=== PATIENT | male | born 1955 | race Caucasian/White ===

== ENCOUNTER 2017-11-04 06:00 | Day surgery (SDC) | payer BC ==
[2017-11-03 13:30] VITALS: BMI 25.9
[2017-11-04 06:42] LABS: #Basophils 0.1 thou/uL (0.0-0.2); #Eosinphils 0.7 thou/uL (0.0-0.7); #Lymphocytes 2.5 thou/uL (1.20-3.40); #Monocytes 0.6 thou/uL (0.11-0.59); #Neutrophils 3.2 thou/uL (1.40-6.50); %Basophils 0.8 % (0.0-1.0); %Eosinophils 9.5 % (0.0-10.0); %Lymphocytes 35.3 % (21.0-51.0); %Monocytes 9.2 % (0.0-10.0); %Neutrophils 45.2 % (42.0-75.0); Hemoglobin 14.3 g/dL (14.0-18.0); Mean Corpuscular HGB CONC 33.1 g/dL (32.0-36.0); Mean Corpuscular Hemoglobin 31.1 pg (27.0-31.0); Mean Corpuscular Volume 93.7 fl (80.0-94.0); Mean Platelet Volume 8.7 fL (7.4-10.4); Platelet Count 209 thou/uL (130-400); RBC Distribution Width 11.5 % (11.5-14.5); Red Blood Cell (RBC) Count 4.61 mill/uL (4.70-6.10)
[2017-11-04] MEDS ORDERED: Bupivacaine PF 0.5% 30 ML VIAL ONE ×2 (06:56→07:03)
[2017-11-04] MEDS ORDERED: Lidocaine 2% w/Epinephrine 1:200K 20 ML VIAL ONE (06:56)
[2017-11-04] MEDS ORDERED: Fentanyl 100 MCG/2 ML VIAL ONE (06:57)
[2017-11-04 07:06] LABS: Anion Gap 10 mmol/L (10-20); BUN (Urea Nitrogen) 13 mg/dL (8.4-25.7); Calc. Creatinine Clearance 130 mL/min (70-130); Calcium 9.7 mg/dL (7.8-10.44); Carbon Dioxide 26 mmol/L (22-29); Chloride 107 mmol/L (98-107); Estimated GFR-MDRD Greater than 90; Glucose 116 mg/dL (70-105); Potassium 4.2 mmol/L (3.5-5.1); Sodium 139 mmol/L (136-145)
[2017-11-04] MEDS ORDERED: Levofloxacin 500 mg/D5W 100 ml Premix Bag ONE (07:11)
[2017-11-04] MEDS ORDERED: Lidocaine 1% PF 5 ML VIAL ONE (14:14)
[2017-11-04] MEDS ORDERED: Ketorolac Tromethamine 30 MG/ML VIAL ONE (14:14)
[2017-11-04] MEDS ORDERED: Ondansetron HCl/PF 4 MG/2 ML Vial ONE (14:14)
[2017-11-04] MEDS ORDERED: Metoclopramide HCl 10 MG/2 ML VIAL ONE (14:14)
[2017-11-04] MEDS ORDERED: PROPOFOL 200 MG/20 ML VIAL ONE (14:14)
[2017-11-04] MEDS ORDERED: Dexamethasone 20 MG/5 ML VIAL ONE (14:14)
--- NOTE | 2017-11-05 13:07 | OP ---
PREOPERATIVE DIAGNOSIS: Right inguinal hernia. POSTOPERATIVE DIAGNOSIS: Right inguinal hernia. PROCEDURE: Open right inguinal hernia repair with mesh, PHS extended. SURGEON: El Mosley M.D. ANESTHESIA: General. ESTIMATED BLOOD LOSS: Minimal. COMPLICATIONS: None. SPECIMEN: None. FINDINGS: Right inguinal hernia. TECHNIQUE: The patient was taken to the operating room and placed supine on the table. After genera l anesthetic was obtained, bilateral groins and abdomen were shaved, prepped and draped in a sterile fashion. An oblique incision made above the pubic tubercle in the right lower quadrant. Cautery dis sected down through Ciarra's to expose the external oblique. External oblique fibers were opened cesar ng the course of the external ring. Contents of inguinal canal were resected from backside of the ex ternal oblique. Cord structures were mobilized on the pubic tubercle using a Jessie drain. Dissect ion superior medially on the cord showed there to be an indirect hernia sac. The indirect hernia sac was dissected back to the internal ring. The preperitoneal space was bluntly dissected through the internal ring. PHS extended mesh brought into the sterile field. The underlay was placed in the int ernal ring and laid out flat in the preperitoneal space. The overlay was laid in the floor of the in guinal canal. The overlay was cut laterally to incorporate the internal ring. The overlay was sewn distally to the pubic tubercle, medially to the transverse arch and laterally to the shelving edge of inguinal ligament using permanent braided suture. The two ends of cut mesh were reapproximated at t he shelving edge of inguinal ligament laterally to reform the internal ring. The extra mesh was tuck ed back under the external oblique proximally. The wound was irrigated. Local anesthetic was applie d. The wound was closed using 3-0 Vicryl in the external oblique. Tunneled catheter for postop pain was threaded from above the incision and left on top of the mesh for postop pain control. A 3-0 Camron ryl was used to close Ciarra's fascia, 4-0 Monocryl, and Dermabond used to close the skin incision. The patient was en route to recovery in stable condition. All instrument counts, needle counts, and lap counts were correct.
--- NOTE | 2018-01-03 21:44 | EKG ---
Test Reason : PREOP Blood Pressure : / mmHG Vent. Rate : 067 BPM Atrial Rate : 067 BPM P-R Int : 194 ms QRS Dur : 080 ms QT Int : 384 ms P-R-T Axes : 055 016 015 degrees QTc Int : 405 ms Normal sinus rhythm Normal ECG When compared with ECG of 22-SEP-2013 14:50, No significant change was found Confirmed by NENO GOODMAN M.D. ([id number]) on 01/03/2018 9:43:33 PM Referred By: GIFTY Confirmed By:NENO GOODMAN M.D.
== END 2017-11-04 10:01 | disposition home or self-care (01) ==
LOC: SDC 06:00
PROVIDERS: ATTEND Surgery
PROC: 0YU50JZ Supplement Right Inguinal Region with Synthetic Substitute, Open Approach (ICD-10-PCS; principal; 2017-11-04)
DX: K40.90 Unilateral inguinal hernia, without obstruction or gangrene, not specified as recurrent (principal); K21.9 Gastro-esophageal reflux disease without esophagitis; I10 Essential (primary) hypertension; E11.9 Type 2 diabetes mellitus without complications; E78.5 Hyperlipidemia, unspecified; Z87.891 Personal history of nicotine dependence; Z80.9 Family history of malignant neoplasm, unspecified; Z79.84 Long term (current) use of oral hypoglycemic drugs; Z79.899 Other long term (current) drug therapy; Z88.0 Allergy status to penicillin; Z90.49 Acquired absence of other specified parts of digestive tract; Z98.890 Other specified postprocedural states
CPT/HCPCS: 36415; 80048; 85025; 93005; 93010; A4306; C1781; J1100; J1885; J1956; J2001; J2405; J2704; J2765; J3010; S0020

== ENCOUNTER 2018-05-02 08:45 | Outpatient (CLI) | payer BC | END 2018-05-02 08:46 | disposition home or self-care (01) | LOC: BICULT 08:45 | PROVIDERS: ATTEND Internal Medicine Gastroenterology | DX: K74.69 Other cirrhosis of liver (principal); Z87.19 Personal history of other diseases of the digestive system | CPT/HCPCS: 76705 ==

== ENCOUNTER 2018-11-16 07:23 | Outpatient (CLI) | payer BC ==
--- NOTE | 2018-11-16 08:47 | ULT ---
HEPATIC SONOGRAM WITH DUPLEX EVALUATION: HISTORY: Cirrhosis. FINDINGS: The gallbladder is surgically absent. The common duct is 0.4 cm. The liver is unremarkable, without focal mass or intrahepatic biliary dilatation. No free fluid. The spleen is 12.2 cm. Good color a nd spectral flow within the hepatic and splenic arteries. Portal venous flow is toward the liver. H epatic venous flow is toward the IVC. IMPRESSION: 1. Status post cholecystectomy. 2. No evidence of acute biliary obstruction. 3. Mild splenomegaly 12.2 cm(please correlate with patient body size). 4. Appropriate directional portal venous flow. No other findings of portal venous hypertension. POS: [facility]
== END 2018-11-16 07:24 | disposition home or self-care (01) ==
LOC: ULT 07:23 → BICULT 07:24
PROVIDERS: ATTEND Physician Assistant Medical
DX: K74.69 Other cirrhosis of liver (principal); R16.1 Splenomegaly, not elsewhere classified; Z87.19 Personal history of other diseases of the digestive system; Z90.49 Acquired absence of other specified parts of digestive tract
CPT/HCPCS: 76705

== ENCOUNTER 2019-06-15 10:43 | Outpatient (CLI) | payer BC ==
--- NOTE | 2019-06-15 11:47 | ULT ---
EXAM: US Hepatic Doppler PROVIDED CLINICAL HISTORY: Cirrhosis. COMPARISON: 11/16/2018 FINDINGS: The gallbladder is not visualized consistent with patient's history of prior cholecystectomy. The com mon duct measures 0.5 cm which is within normal limits postcholecystectomy. The limited visualized portions of the pancreas, visualized portions of the IVC, visualized proximal abdominal aorta, and spleen demonstrate a normal sonographic appearance. The liver is at the upper limits of normal in size measuring 17.7 cm in length. No focal hepatic lesion is appreciated on provi ded images. Doppler evaluation with spectral analysis and color flow evaluation demonstrates normal directional f low in the portal, hepatic, and splenic veins. Arterial waveforms are demonstrated in the hepatic and splenic arteries. Hepatic Doppler evaluation is unchanged compared to prior exam. IMPRESSION: 1. Postcholecystectomy changes. 2. Upper limits of normal in size of the liver and spleen. Spleen measures 4.8 cm in length with live r measuring 17.7 cm in length. 3. Normal directional flow is seen within the portal, splenic, and hepatic veins.
== END 2019-06-15 10:44 | disposition home or self-care (01) ==
LOC: SCSULT 10:43
PROVIDERS: ATTEND Physician Assistant Medical
DX: E11.9 Type 2 diabetes mellitus without complications (principal); K74.69 Other cirrhosis of liver; Z87.19 Personal history of other diseases of the digestive system; Z90.49 Acquired absence of other specified parts of digestive tract
CPT/HCPCS: 76705

== ENCOUNTER 2019-12-04 09:47 | Outpatient (CLI) | payer BC ==
--- NOTE | 2019-12-04 10:48 | ULT ---
Hepatic ultrasound with duplex evaluation INDICATION: Cirrhosis TECHNIQUE: Grayscale, color Doppler and spectral Doppler images were obtained of the liver, gallbladd er, common bile duct, pancreas, right kidney and spleen. COMPARISON: None FINDINGS: Liver: No focal hepatic lesion is evident. The liver measures 18.6 cm. Hepatic vasculature: Left hepatic vein: Appropriate flow. Middle hepatic vein: Appropriate flow. Right hepatic vein: Appropriate flow. Hepatic artery: Hepatopedal flow. Main portal vein: Hepatopedal flow. Right portal vein: Hepatopedal flow. Left portal vein: Hepatopedal flow. Splenic artery: Appropriate flow. Splenic vein: Hepatopedal flow. Aorta: Appropriate flow. IVC: Appropriate flow. Gallbladder: Surgically absent Common bile duct: 5.0 mm. Pancreas: Visualized pancreas appears within normal limits. Right kidney: 10.7 x 5.0 x 6.6 cm. No focal renal lesion or hydronephrosis. Spleen: The spleen measured 12.7cm in length. IMPRESSION: 1. No focal hepatic lesion. Appropriate hepatopedal flow.
[2019-12-04 14:36] LABS: Hemoglobin A1c 6.3 % (4.0-6.0)
[2019-12-04 14:45] LABS: ALT (SGPT) 12 U/L (8-55); AST (SGOT) 11 U/L (5-34); Albumin 4.6 g/dL (3.4-4.8); Alkaline Phosphatase 59 U/L (40-110); Anion Gap 12 mmol/L (10-20); BUN (Urea Nitrogen) 13 mg/dL (8.4-25.7); Bilirubin, Total 1.2 mg/dL (0.2-1.2); Calc. Creatinine Clearance 0 mL/min (70-130); Calcium 10.1 mg/dL (7.8-10.44); Carbon Dioxide 29 mmol/L (23-31); Cardiac Risk 2.5 (Less than 4.5); Chloride 104 mmol/L (98-107); Cholesterol 165 mg/dl (< 200 Desired); Estimated GFR-MDRD 78; Globulin 2.3 g/dL (2.4-3.5); Glucose 113 mg/dL (80-115); HDL Cholesterol 65 mg/dL (>60 Neg Risk); LDL Cholesterol, Calculated 88 mg/dL; Potassium 4.7 mmol/L (3.5-5.1); Protein, Total 6.9 g/dL (5.8-8.1); Sodium 140 mmol/L (136-145); Triglycerides 59 mg/dL (Less than 150)
== END 2019-12-04 09:48 | disposition home or self-care (01) ==
LOC: SCSULT 09:47
PROVIDERS: ATTEND Internal Medicine Gastroenterology
DX: K74.69 Other cirrhosis of liver (principal)
CPT/HCPCS: 36415; 76705; 80053; 80061; 82105; 83036; G0103